=== PATIENT | male | born 1995 | race African-American/Black ===

== ENCOUNTER 2023-08-03 09:48 | Emergency (ER) | payer OTHER, MEDICAID ==
[~2023-08-03] VITALS: Ht 172.7 cm; Wt 72.7 kg
[2023-08-03 10:39] VITALS: BP 133/84; PULSE 61; RESP 16; TEMP 98.1
[2023-08-03] MEDS ORDERED: METHOCARBAMOL 500 MG TABLET PO ONE (12:30)
[2023-08-03] MEDS ORDERED: IBUPROFEN 600 MG TABLET PO ONE (12:30)
[2023-08-03] MEDS ORDERED: ACET-66 PO (14:16)
[2023-08-03] MEDS ORDERED: IBUP-1554 PO (14:16)
[2023-08-03] MEDS ORDERED: METH-659 PO (14:19)
== END 2023-08-03 14:52 | disposition home or self-care (01) ==
LOC: EMS 09:49
DX: S83.91XA Sprain of unspecified site of right knee, initial encounter (principal); S30.0XXA Contusion of lower back and pelvis, initial encounter; X58.XXXA Exposure to other specified factors, initial encounter; Y93.89 Activity, other specified; Y92.89 Other specified places as the place of occurrence of the external cause; Y99.8 Other external cause status
CPT/HCPCS: 99283